=== PATIENT | female | born 1995 | race Caucasian/White ===

== ENCOUNTER → 2016-03-21 | Outpatient (CLI) | payer BC, OTHER ==
[2016-03-21 17:20] LABS: BASOPHILS # (AUTO) 0.03 10*3/UL; BASOPHILS % (AUTO) 0.3 % (0-1); EOSINOPHILS % (AUTO) 2.1 % (0-8); HEMATOCRIT 39.3 % (37.0-47.0); HEMOGLOBIN 14.1 g/dL (12.0-16.0); IMM GRAN % (AUTO) 0.2 % (0-5); IMM GRAN# (AUTO) 0.02 10*3/UL; LYMPHOCYTES # (AUTO) 2.71 10*3/uL; MEAN CORPUSCULAR HEMOGLOBIN 29.9 PG (27-31); MEAN CORPUSCULAR HGB CONC 35.9 g/dL (33-37); MEAN PLATELET VOLUME 9.7 FL (7.4-12.2); MONOCYTES # (AUTO) 0.59 10*3/UL (0.3-0.8); MONOCYTES % (AUTO) 5.5 % (5-15); NEUTROPHILS # (AUTO) 7.24 10*3/UL; NEUTROPHILS % (AUTO) 66.9 % (50-80); RDW COEFFICIENT OF VARIATION 13.1 % (11.5-14.5); RED BLOOD COUNT 4.71 10^6/uL (4.20-5.40); WHITE BLOOD COUNT 10.82 10^3/uL (4.8-10.8)
[2016-03-21 17:22] LABS: PLATELET MORPHOLOGY COMMENT NORMAL MORPHOLOGY (NORM)
[2016-03-21 17:29] LABS: BLOOD UREA NITROGEN 5 mg/dL (7-22); BUN/CREATININE RATIO 8.33 (6-20); CALCIUM 9.2 mg/dL (8.7-10.7); CHLORIDE 105 meq/L (98-112); CREATININE 0.6 mg/dL (0.50-1.20); EST GLOMERULAR FILTRATION > 60 (>60 ml/min/1.73m(2)); GLUCOSE 98 mg/dL (78-110); POTASSIUM 3.9 meq/L (3.8-5.2); SODIUM 138 meq/L (135-145)
== END ==
LOC: MOB LAB 16:54
DX: R10.84 Generalized abdominal pain (principal)
CPT/HCPCS: 36415; 80048; 85025

== ENCOUNTER → 2016-04-25 | Outpatient (CLI) | payer BC, OTHER | LOC: MOB LAB 10:17 | PROVIDERS: ATTEND Nurse Practitioner Family | DX: R10.2 Pelvic and perineal pain (principal); N94.89 Other specified conditions associated with female genital organs and menstrual cycle | CPT/HCPCS: 87480; 87491; 87510; 87591; 87660 ==

== ENCOUNTER → 2016-09-11 | Outpatient (CLI) | payer BC, OTHER ==
--- NOTE | 2016-09-11 10:59 | DI ---
CT ABDOMEN SCAN WITHOUT IV CONTRAST, 09/11/2016 8:42 AM : Clinical History: Diffuse abdominal pain. Previous Exam: None at this facility. Scans are performed from the lower lung bases through the liver and kidneys without IV contrast. Sagi ttal and coronal reformatted images are generated. No oral or rectal contrast was ordered. The lung bases are clear. The liver is normal. The gallbladder is grossly normal. There is no abnorma lity of the spleen, pancreas, and adrenal glands. Both kidneys are normal in size, shape, position an d contour. There is no hydronephrosis or hydroureter. No renal or ureteral calculi are present. There are no abnormal retrocrural or periaortic nodes. No ascites is present. READING: Normal CT abdomen scan. CT PELVIS SCAN WITHOUT IV CONTRAST, 09/11/2016 8:42 AM : Clinical History: See above. Previous Exam: None. Scans are performed from the inferior margin of the liver and kidneys to the symphysis pubis without IV contrast. There is a small physiologic amount of free fluid collection. There is no adenopathy. The appendix is normal. The small bowel, terminal ileum, and ileocecal valve are normal. The colon is also normal. T here are no hernias. The uterus and both ovaries are normal. READING: Normal CT pelvis scan.
--- NOTE | 2016-09-11 15:31 | DI ---
PELVIC ULTRASOUND, 09/11/2016 8:42 AM Clinical History: Pelvic pain. Previous Exam: None at this facility. Technique: Transabdominal scans are performed. The uterus measures 25 x 45 x 75 mm and has a normal appearance. The central uterine stripe measures 6 mm. The ovaries are normal and demonstrate vascular flow. There is a tubular collection of fluid i n the cul-de-sac with an estimated volume of 5 mL consistent with a physiologic amount of fluid. Ther e is no pelvic mass. Reading: Normal pelvic ultrasound.
--- NOTE | 2016-09-11 15:40 | DI ---
PELVIC ULTRASOUND, 09/11/2016 8:42 AM Clinical History: Pelvic pain. Previous Exam: None at this facility. Technique: Transvaginal scans are performed. The uterus measures 30 x 40 x 70 mm and has a normal appearance. The central uterine stripe measures 4 mm. There is a cyst of the right ovary measuring approximately 15 mm in diameter. Both ovaries have follicles distributed along the perimeter of each ovary in a "string of pearls" distribution. This p attern is frequently associated with polycystic ovarian syndrome but is not diagnostic for that proce ss. There is a physiologic amount of fluid in the cul-de-sac. Readin. The uterus is normal. 2. Both ovaries have follicles at the perimeter of each ovary in a "string of pearls" configuration and this can be seen with polycystic ovarian syndrome. There is a small 15 mm cyst of the right ovary .
== END ==
LOC: US 08:39
PROVIDERS: ATTEND Nurse Practitioner Family
DX: R10.2 Pelvic and perineal pain (principal); R10.84 Generalized abdominal pain; N83.201 Unspecified ovarian cyst, right side
CPT/HCPCS: 74176; 76830; 76856